=== PATIENT | female | born 1995 | race African-American/Black ===

== ENCOUNTER 2019-02-02 20:24 | Emergency (ER) | payer BC ==
[~2019-02-02] VITALS: Ht 167.6 cm; Wt 99.8 kg
[2019-02-02 20:32] VITALS: Ht 167.6 cm; Wt 99.8 kg
[2019-02-02 21:30] VITALS: BP 146/67
== END 2019-02-02 21:30 | disposition home or self-care (01) ==
LOC: ED 20:24
DX: S90.31XA Contusion of right foot, initial encounter (principal); S90.511A Abrasion, right ankle, initial encounter; W22.8XXA Striking against or struck by other objects, initial encounter; Y93.89 Activity, other specified; Y92.89 Other specified places as the place of occurrence of the external cause; Y99.8 Other external cause status